=== PATIENT | female | born 1950 | race Caucasian/White ===

== ENCOUNTER → 2024-01-16 13:53 | Outpatient (REF) | payer MEDICARE, BC, SELFPAY | LOC: DHCBC HW 13:53 | PROVIDERS: ATTENDING PHYSICIAN Internal Medicine; FAMILY PHYSICIAN Family Medicine | DX: I65.23 Occlusion and stenosis of bilateral carotid arteries (principal); I10 Essential (primary) hypertension; R94.31 Abnormal electrocardiogram [ECG] [EKG]; R60.9 Edema, unspecified | CPT/HCPCS: 93306 ==

== ENCOUNTER → 2024-04-04 07:09 | Outpatient (REF) | payer MEDICARE, BC, SELFPAY ==
[2024-04-04 10:25] LABS: % Basophils 1.1 % (0-2); % Lymphocytes 44.3 % (20.5-51.1); % Monocytes 5.4 % (1.7-9.3); % Neutrophils 47.2 % (42.2-75.2); Absolute Basophils 0.1 10^3/uL (0-0.2); Absolute Eosinophils 0.1 10^3/uL (0-0.7); Absolute Lymphocytes 2.9 10^3/uL (1.2-3.4); Absolute Monocytes 0.4 10^3/uL (0.1-0.6); Mean Corp Hgb Conc. 33.3 g/dL (33.0-37.0); Mean Corpuscular Hgb 28.5 pg (27.0-31.0); Mean Corpuscular Volume 85.4 fL (81.0-99.0); Mean Platelet Volume 10.5 fL (7.4-10.4); Nucleated Red Blood Cells % 0 %; Platelet Count 291 10^3/uL (130-400); Red Blood Cell Count 5.27 10^6/uL (4.20-5.40); Red Cell Dist. Width 13.3 % (11.5-14.5); White Blood Cell Count 6.5 10^3/uL (4.8-10.8)
[2024-04-04 10:34] LABS: ALT (SGPT) 20 U/L (0-35); AST (SGOT) 29 U/L (14-36); Blood Urea Nitrogen 15 mg/dl (7-17); Calcium 10.2 mg/dl (8.4-10.2); Carbon Dioxide 28 mmol/L (22-30); Chloride 103 mmol/L (98-107); Glucose 88 mg/dl (70-99); HDL Cholesterol 59 mg/dl; LDL Cholesterol, Calculated 206 mg/dl; Potassium 4.4 mmol/L (3.5-5.1); Sodium 141 mmol/L (135-145); Total Cholesterol 316 mg/dl (50-199); Triglyceride 256 mg/dl (10-149); Very Low Density Lipoprotein 51 mg/dl (0-30); eGFR > 60.00
[2024-04-04 10:57] LABS: TSH 0.02 uIU/ml (0.47-4.68)
[2024-04-04 13:14] LABS: Glycohemoglobin (HgbA1c) 5.6 % (4.0-5.6)
== END ==
LOC: HWLAB 07:09
PROVIDERS: ATTENDING PHYSICIAN Internal Medicine; FAMILY PHYSICIAN Family Medicine
DX: I65.23 Occlusion and stenosis of bilateral carotid arteries (principal); E78.2 Mixed hyperlipidemia; M25.50 Pain in unspecified joint; I10 Essential (primary) hypertension; R73.01 Impaired fasting glucose; E03.9 Hypothyroidism, unspecified; E66.01 Morbid (severe) obesity due to excess calories; Z68.37 Body mass index [BMI] 37.0-37.9, adult; Z71.3 Dietary counseling and surveillance
CPT/HCPCS: 36415; 80048; 80061; 83036; 84443; 84450; 84460; 85025

== ENCOUNTER → 2024-06-26 14:05 | Outpatient (REF) | payer MEDICARE, BC, SELFPAY | LOC: MRI 3T 14:05 | PROVIDERS: ATTENDING PHYSICIAN Family Medicine | DX: M25.562 Pain in left knee (principal) | CPT/HCPCS: 73721 ==

== ENCOUNTER → 2024-07-23 09:33 | Outpatient (REF) | payer MEDICARE, BC, SELFPAY ==
[2024-07-23 13:01] LABS: TSH Reflex To Free T4 0.67 uIU/ml (0.47-4.68)
[2024-07-23 13:02] LABS: ALT (SGPT) 21 U/L (0-35); AST (SGOT) 27 U/L (14-36); HDL Cholesterol 53 mg/dl; LDL Cholesterol, Calculated 56 mg/dl; Total Cholesterol 153 mg/dl (50-199); Triglyceride 220 mg/dl (10-149); Very Low Density Lipoprotein 44 mg/dl (0-30)
== END ==
LOC: HWLAB 09:33
PROVIDERS: ATTENDING PHYSICIAN Internal Medicine; FAMILY PHYSICIAN Family Medicine
DX: I65.23 Occlusion and stenosis of bilateral carotid arteries (principal); E78.2 Mixed hyperlipidemia; I10 Essential (primary) hypertension
CPT/HCPCS: 36415; 80061; 84443; 84450; 84460

== ENCOUNTER → 2024-08-16 12:08 | Outpatient (REF) | payer MEDICARE, BC, SELFPAY ==
[2024-08-16 16:11] LABS: Urine Albumin Negative (Neg - Trace); Urine Bilirubin Negative (Negative); Urine Character Very Cloudy (Clear); Urine Color Yellow; Urine Glucose Negative (Negative); Urine Ketone Negative (Negative); Urine Leukocyte 2+ (Negative); Urine Nitrite Negative (Negative); Urine Occult Blood Trace (Negative); Urine Specific Gravity 1.015 (<1.030); Urine Urobilinogen Negative (Neg - 1+)
[2024-08-16 16:31] LABS: Urine Bacteria Many (Negative); Urine Red Blood Cell 0-2 /HPF (0-2); Urine White Cell 21-25 /HPF (0-5)
== END ==
LOC: HWLAB 12:08
PROVIDERS: ATTENDING PHYSICIAN Family Medicine
DX: R30.0 Dysuria (principal)
CPT/HCPCS: 81003; 81015; 87077; 87086; 87186

== ENCOUNTER 2024-08-16 12:40 | Emergency (ER) | payer SELFPAY ==
[2024-08-16 12:49] VITALS: BP 136/83
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
[2024-08-16 16:47] VITALS: BP 145/85
[2024-08-16 19:34] VITALS: BP 141/82
[2024-08-16 19:35] VITALS: BP 141/82
== END 2024-08-16 19:35 | disposition home or self-care (01) ==
LOC: EMR 12:40
PROVIDERS: EMERGENCY PHYSICIAN Emergency Medicine; FAMILY PHYSICIAN Family Medicine
DX: S13.9XXA Sprain of joints and ligaments of unspecified parts of neck, initial encounter (principal); S33.5XXA Sprain of ligaments of lumbar spine, initial encounter; N39.0 Urinary tract infection, site not specified; V43.52XA Car driver injured in collision with other type car in traffic accident, initial encounter; Y92.410 Unspecified street and highway as the place of occurrence of the external cause
CPT/HCPCS: 99284; 70450; 72125; 72131

== ENCOUNTER → 2024-09-18 12:49 | Outpatient (REF) | payer MEDICARE, BC, SELFPAY ==
[2024-09-18 16:07] LABS: TSH 1.08 uIU/ml (0.47-4.68)
[2024-09-18 16:42] LABS: Glycohemoglobin (HgbA1c) 5.2 % (4.0-5.6)
== END ==
LOC: HWLAB 12:49
PROVIDERS: ATTENDING PHYSICIAN Family Medicine; REFERRING PHYSICIAN Internal Medicine
DX: E03.9 Hypothyroidism, unspecified (principal); R73.03 Prediabetes
CPT/HCPCS: 83036; 84443

== ENCOUNTER → 2024-12-18 13:15 | Outpatient (REF) | payer MEDICARE, BC, SELFPAY ==
[2024-12-18 15:21] LABS: % Basophils 0.8 % (0-2); % Eosinophils 1.5 % (0-6); % Immature Granulocytes 0.4 % (0-0.5); % Lymphocytes 42.9 % (20.5-51.1); % Monocytes 4.9 % (1.7-9.3); % Neutrophils 49.5 % (42.2-75.2); Absolute Basophils 0.1 10^3/uL (0-0.2); Absolute Eosinophils 0.1 10^3/uL (0-0.7); Absolute Lymphocytes 3.4 10^3/uL (1.2-3.4); Absolute Monocytes 0.4 10^3/uL (0.1-0.6); Hematocrit 42.9 % (37.0-47.0); Hemoglobin 14.5 g/dL (12.0-16.0); Mean Corp Hgb Conc. 33.8 g/dL (33.0-37.0); Mean Corpuscular Hgb 28.5 pg (27.0-31.0); Mean Corpuscular Volume 84.4 fL (81.0-99.0); Mean Platelet Volume 9.3 fL (7.4-10.4); Nucleated Red Blood Cells % 0 %; Platelet Count 288 10^3/uL (130-400); Red Blood Cell Count 5.08 10^6/uL (4.20-5.40); Red Cell Dist. Width 12.8 % (11.5-14.5)
[2024-12-18 15:22] LABS: ALT (SGPT) 18 U/L (0-35); AST (SGOT) 23 U/L (14-36); Albumin 4.2 g/dl (3.5-5.0); Alkaline Phosphatase 77 U/L (38-126); Blood Urea Nitrogen 23 mg/dl (7-17); Calcium 9.7 mg/dl (8.4-10.2); Carbon Dioxide 29 mmol/L (22-30); Chloride 98 mmol/L (98-107); Glucose 86 mg/dl (70-99); Potassium 3.8 mmol/L (3.5-5.1); Sodium 135 mmol/L (135-145); Total Bilirubin 0.9 mg/dl (0.2-1.3); eGFR > 60.00
[2024-12-18 15:40] LABS: Vitamin D, 25-OH*** 41.7 ng/mL (30-80)
[2024-12-18 15:53] LABS: TSH 0.11 uIU/ml (0.47-4.68)
[2024-12-19 09:08] LABS: Glycohemoglobin (HgbA1c) 5.3 % (4.0-5.6)
== END ==
LOC: HWLAB 13:15
PROVIDERS: ATTENDING PHYSICIAN Family Medicine
DX: I10 Essential (primary) hypertension (principal); E78.2 Mixed hyperlipidemia; E55.9 Vitamin D deficiency, unspecified; R73.01 Impaired fasting glucose; E04.1 Nontoxic single thyroid nodule; D47.2 Monoclonal gammopathy
CPT/HCPCS: 36415; 80053; 82306; 83036; 84443; 85025

== ENCOUNTER → 2025-01-17 08:21 | Outpatient (REF) | payer MEDICARE, BC, SELFPAY | LOC: HWRCS 08:21 | PROVIDERS: ATTENDING PHYSICIAN Internal Medicine; FAMILY PHYSICIAN Family Medicine | DX: R00.2 Palpitations (principal); R06.09 Other forms of dyspnea | CPT/HCPCS: 93306 ==

== ENCOUNTER → 2025-01-24 08:11 | Outpatient (REF) | payer MEDICARE, BC, SELFPAY | LOC: HWRCS 08:11 | PROVIDERS: ATTENDING PHYSICIAN Internal Medicine; FAMILY PHYSICIAN Family Medicine | DX: R00.2 Palpitations (principal); R06.09 Other forms of dyspnea | CPT/HCPCS: 78452; 93017; A9500; J2785 ==

== ENCOUNTER → 2025-01-28 10:06 | Outpatient (REF) | payer BC, MEDICARE, SELFPAY ==
[2025-01-28 13:30] LABS: HDL Cholesterol 52 mg/dl; LDL Cholesterol, Calculated 55 mg/dl; Total Cholesterol 143 mg/dl (50-199); Triglyceride 182 mg/dl (10-149); Very Low Density Lipoprotein 36 mg/dl (0-30)
[2025-01-28 13:47] LABS: TSH 0.38 uIU/ml (0.47-4.68)
== END ==
LOC: HWLAB 10:06
PROVIDERS: ATTENDING PHYSICIAN Family Medicine
DX: E78.2 Mixed hyperlipidemia (principal); E03.9 Hypothyroidism, unspecified
CPT/HCPCS: 36415; 80061; 84443

== ENCOUNTER → 2025-02-12 12:21 | Outpatient (REF) | payer MEDICARE, BC, SELFPAY ==
[2025-02-12 16:42] LABS: TSH 0.72 uIU/ml (0.47-4.68)
== END ==
LOC: HWLAB 12:21
PROVIDERS: ATTENDING PHYSICIAN Family Medicine
DX: E03.9 Hypothyroidism, unspecified (principal)
CPT/HCPCS: 36415; 84443

== ENCOUNTER → 2025-03-21 13:57 | Outpatient (REF) | payer MEDICARE, BC, SELFPAY | LOC: HWRAD 13:57 | PROVIDERS: ATTENDING PHYSICIAN Family Medicine | DX: M79.644 Pain in right finger(s) (principal) | CPT/HCPCS: 73130 ==

== ENCOUNTER → 2025-06-24 10:52 | Outpatient (REF) | payer MEDICARE, BC, SELFPAY ==
[2025-06-24 16:10] LABS: Hematocrit 40.2 % (37.0-47.0); Hemoglobin 13.6 g/dL (12.0-16.0); Mean Corp Hgb Conc. 33.8 g/dL (33.0-37.0); Mean Corpuscular Volume 83.4 fL (81.0-99.0); Nucleated Red Blood Cells % 0 %; Platelet Count 229 10^3/uL (130-400); Red Cell Dist. Width 13.1 % (11.5-14.5)
[2025-06-24 16:19] LABS: ALT (SGPT) 19 U/L (0-35); AST (SGOT) 28 U/L (14-36); Albumin 4.4 g/dl (3.5-5.0); Alkaline Phosphatase 70 U/L (38-126); Blood Urea Nitrogen 24 mg/dl (7-17); Calcium 9.7 mg/dl (8.4-10.2); Carbon Dioxide 25 mmol/L (22-30); Chloride 104 mmol/L (98-107); Glucose 82 mg/dl (70-99); HDL Cholesterol 56 mg/dl; LDL Cholesterol, Calculated 78 mg/dl; Potassium 4.2 mmol/L (3.5-5.1); Sodium 134 mmol/L (135-145); Total Protein 6.8 g/dl (6.3-8.2); Very Low Density Lipoprotein 34 mg/dl (0-30); eGFR > 60.00
[2025-06-24 16:45] LABS: TSH 1.00 uIU/ml (0.47-4.68)
[2025-06-24 18:21] LABS: Uric Acid 6.8 mg/dl (2.5-6.2)
[2025-06-25 09:11] LABS: Glycohemoglobin (HgbA1c) 5.3 % (4.0-5.6)
== END ==
LOC: HWLAB 10:52
PROVIDERS: ATTENDING PHYSICIAN Family Medicine
DX: E03.9 Hypothyroidism, unspecified (principal); E78.2 Mixed hyperlipidemia; D47.2 Monoclonal gammopathy; R73.03 Prediabetes
CPT/HCPCS: 36415; 80053; 80061; 83036; 84443; 84550; 85025

== ENCOUNTER → 2025-07-29 12:48 | Outpatient (REF) | payer MEDICARE, BC, SELFPAY ==
[2025-07-29 15:50] LABS: Iron 73 ug/dl (37-170)
[2025-07-29 16:02] LABS: Total Iron Binding Capacity 373 ug/dl (265-497)
[2025-07-29 16:23] LABS: Cortisol, Random 7.8 ug/dl
[2025-07-29 16:27] LABS: Ferritin 169.0 ng/ml (11.1-264.0)
[2025-07-29 16:58] LABS: Folate 15.3 ng/ml (2.76-20); Vitamin B12 801 pg/ml (239-931)
== END ==
LOC: HWLAB 12:48
PROVIDERS: ATTENDING PHYSICIAN Family Medicine
DX: R53.83 Other fatigue (principal); R79.89 Other specified abnormal findings of blood chemistry; E03.9 Hypothyroidism, unspecified
CPT/HCPCS: 36415; 82533; 82607; 82728; 82746; 83540; 83550

== ENCOUNTER → 2025-09-30 12:22 | Outpatient (REF) | payer MEDICARE, BC, SELFPAY | LOC: PAVMRI 12:22 | PROVIDERS: ATTENDING PHYSICIAN Family Medicine | DX: K76.9 Liver disease, unspecified (principal) | CPT/HCPCS: 74183; A9575 ==